=== PATIENT | female | born 1960 | race Hispanic/Latino ===

== ENCOUNTER → 2017-12-29 | Outpatient (CLI) | payer BC ==
--- NOTE | 2017-12-29 11:47 | Diagnostic Imaging Report ---
PROCEDURE:GALLBLADDER ULTRASOUND COMPARISON:None. INDICATION:Right lower quadrant pain; biliary dyskinesia. TECHNIQUE:Hay scale color Doppler ultrasound gallbladder FINDINGS: Imaged portions of the inferior vena cava, abdominal aorta, pancreas and right kidney are normal. Right liver span is 15 cm. Normal echogenicity with a smooth parenchymal margin. Portal vein diameter 1.2 cm; normal flow direction. 0.5 cm non-mobile, non-shadowing echogenic focus along the cranial gallbladder wall near the fundus. No conspicuous vascularity. No calcified stone or sludge. Wall thickness 0.2 cm. Common bile duct diameter 0.6 cm. No sonographic Gutierrez's sign. CONCLUSION: 0.5 cm avascular polyp versus tiny adherent noncalcified gallstone. No evidence of chronic or acute cholecystitis. Dictated by: Clark Keene M.D. on 12/29/2017 at 11:49 Electronically approved by: Clark Keene M.D. on 12/29/2017 at 11:49
[2017-12-29 12:49] LABS: ALANINE AMINOTRANSFERASE 39 IU/L (0-55); ALBUMIN 3.9 g/dL (3.5-5.0); ALBUMIN/GLOBULIN RATIO 1.1 (0.8-2.0); ALKALINE PHOSPHATASE 152 IU/L (40-150); ANION GAP 11.1 mmol/L (8-16); BLOOD UREA NITROGEN 12 mg/dL (7-26); BUN/CREATININE RATIO 14 (6-25); CALCIUM 9.7 mg/dL (8.4-10.2); CARBON DIOXIDE 28 mmol/L (22-29); CHLORIDE 102 mmol/L (98-107); CREATININE, SERUM 0.84 mg/dL (0.57-1.11); EST GLOMERULAR FILTRATION RATE > 60 ML/MIN (60-); GLUCOSE 307 mg/dL (74-118); POTASSIUM 4.1 mmol/L (3.5-5.1); SODIUM 137 mmol/L (136-145)
== END ==
LOC: US 10:30
PROVIDERS: ATTEND Surgery
DX: K82.8 Other specified diseases of gallbladder (principal)
CPT/HCPCS: 36415; 76705; 80053; 93005

== ENCOUNTER → 2018-01-02 | Day surgery (SDC) | payer BC ==
[2018-01-01 11:00] LABS: BASOPHILS % 0.4 % (0.0-1.0); EOSINOPHILS # (AUTO) 0.3 (0.0-0.4); HEMATOCRIT 45.3 % (34.2-44.1); HEMOGLOBIN 15.2 g/dL (12.0-16.0); LYMPHOCYTES # (AUTO) 2.1 (1.0-3.2); LYMPHOCYTES % 38.4 % (18.0-39.1); MEAN CORPUSCULAR HEMOGLOBIN 30.4 pg (28-32); MEAN CORPUSCULAR HGB CONC 33.6 g/dL (31-35); MEAN CORPUSCULAR VOLUME 90.6 fL (81-99); MONOCYTES # (AUTO) 0.5 (0.2-0.8); MONOCYTES % 8.8 % (4.4-11.3); NEUTROPHILS # (AUTO) 2.6 (2.1-6.9); PLATELET COUNT 194 x10e3/uL (140-360); RED CELL DISTRIBUTION WIDTH 13.5 % (11.7-14.4)
[~2018-01-02] MED LIST: BUPIVACAINE 0.5%/EPI 30 ML SDV INJ ONE; CEFAZOLIN SOD 1 GM VIAL ONE; DESFLURANE 240 ML BTL INH ONE; DEXAMETHASONE SOD PHOS INJ 4 MG/ML VIAL ONE; DEXILANT60 MG PO; FENTANYL CITRATE/PF 100MCG/2 ML INJ ONE; GABAPENTIN100 MG PO; GLIMEPIRIDE2 MG PO; GLYCOPYRROLATE INJ 1MG/ 5 ML SYR ONE; HYDROCODONE/APAP 7.5MG-325MG 1 EA TAB ONE; KETOROLAC TROMETHAMINE 30 MG/ML VIAL ONE; LEVOFLOXACIN 500MG/D5W 100ML 100 ML IV ONE; LINZESS PO; LOSARTAN POTAS100 MG PO; METOCLOPRAMIDE HCL 10 MG/2ML VIAL ONE; NEOSTIGMINE 5 MG/5ML SYR ONE; ONDANSETRON HCL INJ 2 MG/ML VIAL ONE; PROPOFOL IV EMULSION 10 MG/ML 20 ML VIAL ONE; ROCURONIUM BROMIDE 10 MG/ML 5ML VIAL ONE; TOUJEO PO
--- NOTE | 2018-01-02 13:30 | Operative Report ---
DATE OF PROCEDURE: January 02, 2018 PREOPERATIVE DIAGNOSIS: Biliary dyskinesia. POSTOPERATIVE DIAGNOSIS: Biliary dyskinesia. PROCEDURE PERFORMED: Laparoscopic cholecystectomy. GENERAL OPERATOR: FAWAD Najera ANESTHESIA: General. ESTIMATED BLOOD LOSS: Minimal. DRAINS: None. COMPLICATIONS: None. INDICATIONS AND FINDINGS: This is a 57-year-old female who complains of right upper quadrant pain radiating to the back for several weeks. The pain was described as a burning sensation. She had no gallstones by ultrasound but an ejection fraction of 16%. EGD revealed gastritis. CT scan revealed a distended gallbladder. She had a colonoscopy that revealed hemorrhoids. She has had multiple pelvic surgeries in the past. INTRAOPERATIVE FINDINGS: The patient had evidence of fatty liver infiltration and a gallbladder that was distended with very thick bile and some sediment. There was absolutely no ductal dilatation. The cystic duct was short and nondilated. There were pelvic adhesions from previous pelvic surgery. As previously stated, the liver appeared to be fatty liver infiltration. DESCRIPTION OF PROCEDURE: With the patient lying on the table in the supine position, after administration of general endotracheal anesthesia, she was prepped and draped for laparoscopic cholecystectomy. The procedure was begun by establishing a pneumoperitoneum in the right upper quadrant mid-clavicular line because of previous pelvic surgery. A pneumoperitoneum was insufflated to 15 mm of pressure, and then the 5-mm camera was placed. Under direct vision, we placed a 10-11 trocar in the umbilical site that was free of adhesions. There were some omental adhesions inferior to that. A 10-11 trocar was placed in the umbilical site. Then the patient was rotated to the left and with the head up, and we placed a 10-11 subxiphoid port. Also, finally, right anterior axillary line trocar was placed in the right mid-clavicular line. The gallbladder was then retracted cephalad using grasping forceps. It was distended, and we had to decompress it to be able to grasp it. We had to do this several times, until we were able to gain exposure to the neck of the gallbladder. There were some adhesions of omentum to peritoneum in that area. We were able then to identify the cystic duct, which was short and undilated. We also identified the cystic artery. At that point, we transected the cystic duct twice distally and once proximally, and also the cystic artery was transected between titanium clips. Then we took the gallbladder down from the liver bed using electrocautery dissection, placed it in an Endo bag and removed it through the umbilical port. We inspected the operative field, irrigated the right upper quadrant, removed some of the bile that had been spilled. After ascertaining there was no bile leak, no bleeding and no apparent bowel injury, then we closed the wounds using #0 Vicryl for the umbilical fascia, 3-0 Vicryl for subcutaneous tissue in that location as well as the subxiphoid port, and the skin of all the ports was closed using yeison. Then 0.25% Marcaine with epinephrine was given as a local block at the end of the case. The patient tolerated the procedure well and was taken to the recovery room in stable condition. JIE ROWELL MD Job#: [id number]
== END | disposition home or self-care (01) ==
LOC: OR 06:57
PROVIDERS: ATTEND Surgery
DX: K81.1 Chronic cholecystitis (principal); K76.0 Fatty (change of) liver, not elsewhere classified; K29.70 Gastritis, unspecified, without bleeding; K21.9 Gastro-esophageal reflux disease without esophagitis; K64.9 Unspecified hemorrhoids; I10 Essential (primary) hypertension; E78.5 Hyperlipidemia, unspecified; E11.9 Type 2 diabetes mellitus without complications; Z01.812 Encounter for preprocedural laboratory examination; Z79.4 Long term (current) use of insulin; Z68.33 Body mass index [BMI] 33.0-33.9, adult
CPT/HCPCS: 36415 ×2; 47562; 82948; 85025; 88304; C1766; J0690; J1100; J1885; J1956; J2405; J2765; J3490

== ENCOUNTER → 2024-02-07 | Day surgery (SDC) | payer MEDICARE ==
[2024-02-04 10:29] LABS: BASOPHILS % 0.5 % (0.0-1.0); EOSINOPHILS # (AUTO) 0.2 (0.0-0.4); HEMOGLOBIN 13.5 g/dL (12.0-16.0); LYMPHOCYTES # (AUTO) 1.6 (1.0-3.2); LYMPHOCYTES % 36.8 % (18.0-39.1); MEAN CORPUSCULAR HEMOGLOBIN 29.8 pg (28-32); MEAN CORPUSCULAR HGB CONC 31.4 g/dL (31-35); MEAN CORPUSCULAR VOLUME 94.9 fL (81-99); MONOCYTES # (AUTO) 0.3 (0.2-0.8); MONOCYTES % 6.6 % (4.4-11.3); NEUTROPHILS # (AUTO) 2.2 (2.1-6.9); NEUTROPHILS % 50.9 % (38.7-80.0); PLATELET COUNT 155 x10e3/uL (140-360); RED BLOOD COUNT 4.53 x10e6/uL (3.6-5.1); RED CELL DISTRIBUTION WIDTH 14.6 % (11.7-14.4); WHITE BLOOD COUNT 4.37 x10e3/uL (4.8-10.8)
[~2024-02-07] MED LIST changes: -BUPIVACAINE 0.5%/EPI 30 ML SDV INJ ONE; -CEFAZOLIN SOD 1 GM VIAL ONE; +CRESTOR40 MG PO; +CYMBALTA20 MG PO; -DESFLURANE 240 ML BTL INH ONE; -DEXAMETHASONE SOD PHOS INJ 4 MG/ML VIAL ONE; +EPINEPHRINE HCL 1:1000 1ML 1 MG/ML AMP ONE; -FENTANYL CITRATE/PF 100MCG/2 ML INJ ONE; +GLIPIZIDE ER5 MG PO; -GLYCOPYRROLATE INJ 1MG/ 5 ML SYR ONE; -HYDROCODONE/APAP 7.5MG-325MG 1 EA TAB ONE; +HYOSCYAMINE SULFATE 0.5 MG/ML INJ ONE; +JARDIANCE25 MG PO; -KETOROLAC TROMETHAMINE 30 MG/ML VIAL ONE; +LEVEMIR100 UNIT/1 SC; -LEVOFLOXACIN 500MG/D5W 100ML 100 ML IV ONE; +METFORMIN HCL500 MG PO; -METOCLOPRAMIDE HCL 10 MG/2ML VIAL ONE; -NEOSTIGMINE 5 MG/5ML SYR ONE; -ONDANSETRON HCL INJ 2 MG/ML VIAL ONE; -ROCURONIUM BROMIDE 10 MG/ML 5ML VIAL ONE; +TRADJENTA5 MG PO; +VIT D3 PO; +ZESTRIL10 MG PO
[2024-02-07] MEDS: LACTATED RINGER'S 1,000 ML ONE (10:02)
[2024-02-07 12:55] VITALS: BP 122/68; PULSE 108; RESP 18; TEMP 97.3; O2SAT 97
== END | disposition home or self-care (01) ==
LOC: OR 09:18
PROVIDERS: ATTEND Internal Medicine Gastroenterology
DX: K20.90 Esophagitis, unspecified without bleeding (principal); K29.50 Unspecified chronic gastritis without bleeding; K64.8 Other hemorrhoids; I10 Essential (primary) hypertension; E11.9 Type 2 diabetes mellitus without complications; E78.5 Hyperlipidemia, unspecified; F41.9 Anxiety disorder, unspecified; F32.A Depression, unspecified; Z88.8 Allergy status to other drugs, medicaments and biological substances; Z01.810 Encounter for preprocedural cardiovascular examination; Z01.812 Encounter for preprocedural laboratory examination; Z79.84 Long term (current) use of oral hypoglycemic drugs; Z79.4 Long term (current) use of insulin; Z79.899 Other long term (current) drug therapy; Z85.810 Personal history of malignant neoplasm of tongue; Z80.0 Family history of malignant neoplasm of digestive organs
CPT/HCPCS: 36415 ×2; 43239; 45378; 82948; 85025; 93005; J0171; J1980; J2470; J2704; J7121